=== PATIENT | male | born 2000 | race Two or more races ===

== ENCOUNTER 2024-09-23 19:18 | Emergency (ER) | payer MEDICAID, SELFPAY ==
[2024-09-23 19:21] VITALS: BP 137/68; PULSE 90; RESP 20; TEMP 36.7; O2SAT 97
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
== END 2024-09-23 19:45 ==
LOC: SERX 19:58
PROVIDERS: Emergency Provider Emergency Medicine
DX: Z02.89 Encounter for other administrative examinations (principal); S16.1XXA Strain of muscle, fascia and tendon at neck level, initial encounter; X58.XXXA Exposure to other specified factors, initial encounter
CPT/HCPCS: 99281